=== PATIENT | male | born 1995 | race Caucasian/White ===

== ENCOUNTER 2023-07-06 11:12 | Emergency (ER) | payer OTHER ==
[~2023-07-06 11:12] MED LIST: Iopamidol 370 76% 100 ML VIAL ONE
[2023-07-06 12:13] LABS: #Eosinphils 0.4 10x3/uL (0.0-0.5); #Monocytes 0.6 10x3/uL (0.0-1.1); #Neutrophils 5.3 10x3/uL (1.5-8.4); %Basophils 0.2 % (0.0-2.0); %Lymphocytes 21.9 % (18.0-47.0); %Monocytes 7.7 % (0.0-10.0); %Neutrophils 64.8 % (40.0-75.0); Hematocrit 44.4 % (38.8-50.0); Mean Corpuscular HGB CONC 33.8 g/dL (32.0-36.0); Mean Corpuscular Hemoglobin 29.7 pg (27.0-33.0); Mean Corpuscular Volume 87.9 fl (81.2-95.1); Mean Platelet Volume 10.2 fl (7.4-10.4); Platelet Count 271 10x3/uL (150-450); RBC Distribution Width 12.2 % (11.5-14.5); Red Blood Cell (RBC) Count 5.05 10x6/uL (4.32-5.72); White Blood Cell (WBC) Count 8.2 10x3/uL (3.5-10.5)
[2023-07-06 12:30] LABS: ALT (SGPT) 30 U/L (8-55); AST (SGOT) 37 U/L (5-34); Albumin 4.3 g/dL (3.5-5.0); Alkaline Phosphatase 74 U/L (40-110); Anion Gap 18 mmol/L (10-20); BUN (Urea Nitrogen) 16 mg/dL (8.9-20.6); Bilirubin, Total 0.4 mg/dL (0.2-1.2); CK (CPK) 25 U/L (30-200); Calc. Creatinine Clearance 0 mL/min (70-130); Calcium 9.2 mg/dL (7.8-10.44); Carbon Dioxide 23 mmol/L (22-29); Chloride 104 mmol/L (98-107); Estimated GFR 113; Globulin 3.3 g/dL (2.4-3.5); Glucose 104 mg/dL (70-105); Lipase 48 U/L (8-78); Potassium 5.1 mmol/L (3.5-5.1); Protein, Total 7.6 g/dL (6.0-8.3); Sodium 140 mmol/L (136-145)
[2023-07-06] MEDS ORDERED: Ketorolac Tromethamine 30 MG/ML VIAL ONE (13:26)
== END 2023-07-06 15:00 | disposition home or self-care (01) ==
LOC: CSHERS 11:12
DX: J15.9 Unspecified bacterial pneumonia (principal)
CPT/HCPCS: 71045; 71275; 80053; 82550; 83690; 84484; 85025; 85379; 93005; 96374; J1885; Q9967